=== PATIENT | female | born 1965 | race Caucasian/White ===

== ENCOUNTER → 2021-09-12 02:10 | Outpatient (CLI) | payer OTHER, SELFPAY ==
[2021-09-12 19:37] LABS: SARS-CoV-2 RNA PCR Negative
== END ==
PROVIDERS: PCP Internal Medicine; Visit Provider Internal Medicine
DX: J02.9 Acute pharyngitis, unspecified (principal); J34.89 Other specified disorders of nose and nasal sinuses; Z20.822 Contact with and (suspected) exposure to COVID-19
CPT/HCPCS: C9803; U0003; U0005